=== PATIENT | female | born 1940 | race Caucasian/White ===

== ENCOUNTER 2017-08-08 08:00 | Outpatient (CLI) | payer MEDICARE | END 2017-08-08 08:01 | disposition home or self-care (01) | LOC: BICCT 08:00 | PROVIDERS: ATTEND Internal Medicine | DX: R22.0 Localized swelling, mass and lump, head (principal); J32.9 Chronic sinusitis, unspecified; Z98.890 Other specified postprocedural states | CPT/HCPCS: 70486 ==

== ENCOUNTER 2017-09-25 08:29 | Outpatient (CLI) | payer MEDICARE ==
[2017-09-25] MEDS ORDERED: ISOVUE-370 76%-LOCM 1 ML ONE (13:11)
== END 2017-09-25 08:30 | disposition home or self-care (01) ==
LOC: BICCT 08:29
PROVIDERS: ATTEND Physical Medicine & Rehabilitation
DX: R10.12 Left upper quadrant pain (principal); R93.5 Abnormal findings on diagnostic imaging of other abdominal regions, including retroperitoneum; I70.0 Atherosclerosis of aorta; I77.811 Abdominal aortic ectasia; I70.8 Atherosclerosis of other arteries; K76.89 Other specified diseases of liver
CPT/HCPCS: 74175

== ENCOUNTER 2018-02-10 09:00 | Outpatient (CLI) | payer MEDICARE ==
--- NOTE | 2018-02-10 10:22 | CT ---
NONCONTRAST ENHANCED CT CHEST LOW DOSE CT SCREENING: HISTORY: Patient with a history of smoking. CT images obtained with coronal reconstructed images. Images again demonstrate an area of nodular density in the right major fissure unchanged in size or s hape. A small pretracheal lymph node is again seen. Lung parenchymal opacities and bilateral apical nodularity are stable. No significant interval changes seen. Some minimal coronary artery calcific ation is seen. IMPRESSION: Lung RADS category 2 - benign appearance. Recommend continued annual low-dose CT screening. POS: DYLAN
--- NOTE | 2018-02-10 10:30 | ULT ---
THYROID ULTRASOUND: HISTORY: History of thyroid nodules. TECHNIQUE: Multiplanar, tadeo scale, and color Doppler images were obtained in a thyroid ultrasound. FINDINGS: The thyroid lobes are heterogeneous in appearance. There is a nodule in the right thyroid lobe measu ring 1.1 cm in greatest dimension. These are well-circumscribed and wider than tall without suspicio us calcifications. There is a nodule in the left thyroid lobe measuring 1.4 cm in greatest dimension which is also well circumscribed, wider than tall, and without suspicious calcifications. The thyroid lobes each measure 3.7 cm in length. IMPRESSION: Multiple bilateral thyroid nodules. The largest nodule is seen on the left. This nodule is a TIRADS category 4 lesion. Given its size, a followup at 1 year, 2 views, 3 years, and 5 years is recommend ed to ensure stability. POS: DYLAN
== END 2018-02-10 09:01 | disposition home or self-care (01) ==
LOC: CT 09:00
PROVIDERS: ATTEND Internal Medicine
DX: F17.210 Nicotine dependence, cigarettes, uncomplicated (principal); E04.2 Nontoxic multinodular goiter; Z86.39 Personal history of other endocrine, nutritional and metabolic disease
CPT/HCPCS: 76536; G0297

== ENCOUNTER 2018-02-18 08:41 | Outpatient (CLI) | payer MEDICARE | END 2018-02-18 08:42 | disposition home or self-care (01) | LOC: BICMAMMO 08:41 | PROVIDERS: ATTEND Internal Medicine | DX: Z12.31 Encounter for screening mammogram for malignant neoplasm of breast (principal); Z80.3 Family history of malignant neoplasm of breast | CPT/HCPCS: 77063; 77067 ==

== ENCOUNTER 2019-08-13 08:07 | Outpatient (CLI) | payer MEDICARE ==
--- NOTE | 2019-08-13 08:47 | RAD ---
EXAM: 4 views of the left knee HISTORY: Knee pain COMPARISON: None FINDINGS: No knee effusion is seen. There is no evidence of acute fracture or dislocation. Mild osteo phytes are seen in the lateral femorotibial compartment. No soft tissue swelling is present. IMPRESSION: Mild left knee osteoarthritis without evidence of acute osseous abnormality.
--- NOTE | 2019-08-13 08:57 | RAD ---
RIGHT KNEE 4 VIEWS: Date: 08/13/2019 HISTORY: Knee pain. COMPARISON: None. FINDINGS: Severe medial compartment degenerative change with cortical sclerosis and osteophyte formation. Low g rade genu varus. Mild degenerative change of lateral compartment including osteophyte formation and s clerosis. Small joint effusion. Moderate patellofemoral compartment degenerative change. There is ossification of the medial collateral ligament. IMPRESSION: High grade medial compartment degenerative change. POS: TPC
== END 2019-08-13 08:08 | disposition home or self-care (01) ==
LOC: BICRAD 08:07
PROVIDERS: ATTEND Internal Medicine
DX: M25.562 Pain in left knee (principal); M25.561 Pain in right knee; M17.0 Bilateral primary osteoarthritis of knee
CPT/HCPCS: 36415; 80053; 80061; 82306; 82607; 83036; 83735; 84439; 84443; 85025; 85652; 86140; 86160; 86225; 86235; 86376

== ENCOUNTER 2019-08-20 11:55 | Outpatient (CLI) | payer MEDICARE ==
--- NOTE | 2019-08-20 14:42 | ULT ---
THYROID ULTRASOUND: 08/20/2019 HISTORY: A 78-year-old female. Follow up thyroid nodules. COMPARISON: 02/10/2018 FINDINGS: The thyroid parenchyma, especially on the left, has heterogeneous echogenicity and echotexture, duncan g it difficult to determine whether or not there are discrete nodules in some areas or if the appeara nce just represents heterogeneous thyroid tissue. Furthermore, the previous study and the current study were performed on different ultrasound machines , and there is discrepancy in the mattress and boxsprings supervisor's reported findings between the prior and current studi es. Current dimensions of the thyroid gland are measured as follows: Isthmus: 0.2 cm AP Right lobe: 3.3 x 8.2 x 0.9 cm Left lobe: 3.3 x 0.8 x 1.0 cm Three discrete, well circumscribed, isoechoic nodules are identified in the right lobe, one in the up per pole, one in the mid pole, and one in the lower pole, all abutting each other. The largest of the se is in the lower pole, measuring 0.8 x 1.3 x 0.5 cm. They are solid, isoechoic, wider than tall, espinosa ve smooth margins, and no echogenic foci, for total points of 3 each (TI-RADS category 3 - mildly agustín picious. Recommend FNA if greater than or equal to 2.5 cm. Follow up if greater than 1.5 cm (at 1, 3 and 5 years)) Because the nodules are all less than 1.5 cm, no follow up is recommended. The mattress and boxsprings supervisor has not currently identified any nodules in the left lobe. On the previous ultrasound, the mattress and boxsprings supervisor identified a 1.4 x 0.8 x 0.9 cm hypoechoic nodule occupyi ng the lower and mid poles. On the current ultrasound, such an area is identified on static images (t his study is being read remotely by the radiologist, who has no access to the patient for direct scan tasia) with what is probably the same nodule, measuring approximately 2 x 0.7 cm on the sagittal image (this is not demonstrated on the axial images). The difference in length is probably due to differen lydia in positioning of the transducer. This nodule is solid, hypoechoic, wider than tall, has smooth m argins, and no echogenic foci, for total points of 4 (TI-RADS category 4 - moderately suspicious. Rec ommend FNA if greater than or equal to 1.5 cm. Recommend followup if greater than or equal to 1 cm (a t 1, 2, 3 and 5 years)). The rest of the left mid and upper pole thyroid parenchyma is very heterogeneous, making it difficult to determine whether it is composed of multiple tiny solid nodules or just heterogeneous parenchyma. IMPRESSION: 1. Multinodular goiter. 2. Thyroid parenchyma is heterogeneous, and for reasons given above, comparison with the prior study is very difficult. 3. Apparent TI-RADS category 4 nodule at the lower pole of the left lobe. Uncertain whether or not it has grown (it probably has not). Biopsy is only recommended if it has not already been biopsied befo re. During the time of the biopsy, the radiologist will be able to determine whether or not this is a n actual nodule, because there is some uncertainty. 4. Three nodules in the right lobe are all TI-RADS category 3 lesions, for which followup is not hafsa mmended. POS: TPC
== END 2019-08-20 11:56 | disposition home or self-care (01) ==
LOC: BICULT 11:55
PROVIDERS: ATTEND Internal Medicine
DX: E04.2 Nontoxic multinodular goiter (principal); E07.89 Other specified disorders of thyroid
CPT/HCPCS: 76536

== ENCOUNTER 2019-08-27 13:13 | Outpatient (CLI) | payer MEDICARE ==
--- NOTE | 2019-08-27 14:14 | RAD ---
LUMBAR SPINE FOUR VIEWS: HISTORY: Low back pain. FINDINGS: The lumbar vertebrae maintain normal height and alignment in the lateral projection. There is loss of disk space, most prominent at L3-L4 and at L4-L5. Mild to moderate degenerative spurring. Moderate f acet hypertrophy. No spondylolisthesis. IMPRESSION: Mild to moderate degenerative changes of the lumbar spine, as described. POS: TPC
== END 2019-08-27 13:14 | disposition home or self-care (01) ==
LOC: BICRAD 13:13
PROVIDERS: ATTEND Internal Medicine Rheumatology
DX: M54.5 Low back pain (principal); M47.816 Spondylosis without myelopathy or radiculopathy, lumbar region
CPT/HCPCS: 72110

== ENCOUNTER 2019-09-24 09:41 | Outpatient (CLI) | payer MEDICARE ==
--- NOTE | 2019-09-24 10:41 | BD ---
DEXA BONE MINERAL DENSITY STUDY: HISTORY: Postmenopausal female. COMPARISON: Bone densitometry from 2017. FINDINGS: Lumbar Spine: BMD (g/cm2) L1 0.791 T-Score: -1.8 0.5 L2 0.936 T-Score: -0.8 1.7 L3 1.050 T-Score: -0.3 2.4 L4 0.976 T-Score: -0.8 2.0 L1-L4 0.937 T-Score: -1.0 1.6 Change from the comparison exam is +6.1%. Left: Femoral Neck: 0.620 T-Score: -2.1 0.1 Total Femur: 0.626 T-Score: -2.5 -0.6 Change from the comparison examination is -2.7%. WHO CLASSIFICATION: Osteoporosis. Impression: Osteoporosis with elevated fracture risk. POS: OFF
--- NOTE | 2019-09-24 12:14 | MMO ---
Bilateral MAMMO Bilat Screen [facility]. CLINICAL HISTORY: Patient is 78 years old and is seen for screening. The patient has the following family history of breast cancer: maternal aunt, malignant (generic). The patient has no personal history of cancer. The patient has a history of right Excisional Biopsy more than 10 years ago - benign. VIEWS: The views performed were: bilateral craniocaudal with tomosynthesis and bilateral mediolateral oblique with tomosynthesis. FILMS COMPARED: The present examination has been compared to prior imaging studies performed at This study has been interpreted with the assistance of computer-aided detection. MAMMOGRAM FINDINGS: There are scattered fibroglandular densities. There is a post-surgical scar seen in the right breast. There are no suspicious masses, suspicious calcifications, or new areas of architectural distortion. IMPRESSION: THERE IS NO MAMMOGRAPHIC EVIDENCE OF MALIGNANCY. A ROUTINE FOLLOW-UP MAMMOGRAM IN 1 YEAR IS RECOMMENDED. THE RESULTS OF THIS EXAM WERE SENT TO THE PATIENT. ACR BI-RADS Category 2 - Benign finding MAMMOGRAPHY NOTE: 1. A negative mammogram report should not delay a biopsy if a dominant of clinically suspicious mass is present. 2. Approximately 10% to 15% of breast cancers are not detected by mammography. 3. Adenosis and dense breasts may obscure an underlying neoplasm. Reported by: JAZMYN CESAR MD Electonically Signed: [id number]
== END 2019-09-24 09:42 | disposition home or self-care (01) ==
LOC: BICMAMMO 09:41
PROVIDERS: ATTEND Internal Medicine
DX: Z12.31 Encounter for screening mammogram for malignant neoplasm of breast (principal); Z13.820 Encounter for screening for osteoporosis; M81.0 Age-related osteoporosis without current pathological fracture; Z78.0 Asymptomatic menopausal state; Z80.3 Family history of malignant neoplasm of breast; Z91.89 Other specified personal risk factors, not elsewhere classified
CPT/HCPCS: 77063; 77067; 77080

== ENCOUNTER 2019-09-30 09:49 | Outpatient (CLI) | payer MEDICARE ==
--- NOTE | 2019-09-30 11:09 | ULT ---
US Abdominal Aorta Aneurysm HISTORY: Screening for abdominal aortic aneurysm without rupture COMPARISON: CTA of 09/25/2017 FINDINGS: The abdominal aortic measurements are as follows: Proximal: 1.4 x 1.8 x 1.5 cm Mid: 1.4 x 1.8 x 1.7 cm Distal: 1.4 x 2 x 1.8 cm The right common iliac artery measures 0.80 cm and the left common iliac artery measures 0.63 IMPRESSION: No evidence of abdominal aortic aneurysm
== END 2019-09-30 09:50 | disposition home or self-care (01) ==
LOC: BICULT 09:49
PROVIDERS: ATTEND Internal Medicine
DX: I71.4 Abdominal aortic aneurysm, without rupture (principal)
CPT/HCPCS: 76706

== ENCOUNTER 2019-10-08 05:47 | Day surgery (SDC) | payer MEDICARE ==
[2019-10-07 09:17] VITALS: BMI 25.0
[2019-10-08] MEDS ORDERED: EPINEPHrine 0.3 MG in Ophthalmic Irrigation Solution 500 ML IVP SCH (06:00)
[2019-10-08] MEDS ORDERED: Phenylephrine 2.5% Ophth Soln 5 ML BOT ONE (06:03)
[2019-10-08] MEDS ORDERED: Cyclopentolate 1% Opth Drop 2 ML BOT ONE (06:03)
[2019-10-08] MEDS ORDERED: Famotidine/PF 20 mg/2ml Vial ONE (06:45)
[2019-10-08] MEDS ORDERED: Midazolam HCl 2 mg/2 ml Vial ONE (06:45)
[2019-10-08] MEDS ORDERED: Fentanyl 100 MCG/2 ML VIAL ONE (06:45)
[2019-10-08] MEDS ORDERED: Ondansetron PF 4 MG/2 ML Vial ONE ×2 (06:56→10:15)
[2019-10-08] MEDS ORDERED: PROPOFOL 20 ML ONE (06:57)
[2019-10-08] MEDS ORDERED: Promethazine HCl 25 MG/ML VIAL ONE (07:47)
[2019-10-08] MEDS ORDERED: PROPOFOL 200 MG/20 ML VIAL ONE (10:15)
[2019-10-08] MEDS ORDERED: Triamcinolone 40 MG/ML VIAL ONE (10:15)
[2019-10-08] MEDS ORDERED: Bupivacaine PF 0.75% SDV 10 ML ONE (10:15)
[2019-10-08] MEDS ORDERED: Maxitrol 0.1% Opth Oint 3.5 GM TUBE ONE (10:15)
[2019-10-08] MEDS ORDERED: Lidocaine 4% PF 5 ML AMP ONE (10:15)
--- NOTE | 2019-10-08 13:14 | OP ---
DATE OF PROCEDURE: 10/08/2019 PREOPERATIVE DIAGNOSES: Retinal tear and vitreous membranes, right eye. POSTOPERATIVE DIAGNOSIS: Retinal tear and vitreous membranes, right eye. PROCEDURES PERFORMED: Pars plana vitrectomy, membrane peel, and focal laser photocoagulation, right eye. ANESTHESIA: Local with monitored anesthesia care. PROCEDURE IN DETAIL: The patient was identified in the preoperative holding area where appropriate informed consent for the planned surgical procedure on the right eye had been obtained. The patient was transported to the operative suite where appropriate cardiopulmonary monitoring was established. Local anesthesia was obtained using retrobulbar modified Van Lint lid block using 50:50 mixture of 4% lidocaine and 0.75% bupivacaine. The patient was prepped and draped in the usual sterile manner for ophthalmic surgery in the right eye. Lid speculum was placed in the right eye. A 25-gauge trocar was placed in the conjunctiva and sclera superotemporally, inferotemporally, and supranasally. Infusion line was placed inferotemporally. Light pipe and vitreous cutter were inserted into the eye. Core vitrectomy was performed. Vitreous membranes were peeled and removed. Supratemporal horseshoe tear was identified. Prophylactic barricade laser was placed around the horseshoe tear. On peripherally inspected wide field viewing system, no holes, breaks, or tears were identified. Trocars removed. Eye was noted to retain pressure well. Retrobulbar Kenalog was placed. Antibiotic ointment placed. Eye was patched and shielded. The patient was taken to postoperative recovery unit in good condition, having suffered no immediate perioperative complications. The patient was instructed to keep patch and shield on, avoid lifting or bending, followup appointment with Dr. Brown. Job ID: [id number]
== END 2019-10-08 09:28 | disposition home or self-care (01) ==
LOC: SDC 05:47
PROVIDERS: ATTEND Ophthalmology Retina Specialist
PROC: 08T43ZZ Resection of Right Vitreous, Percutaneous Approach (ICD-10-PCS; principal; 2019-10-08)
PROC: 08NE3ZZ Release Right Retina, Percutaneous Approach (ICD-10-PCS; 2019-10-08)
DX: H43.311 Vitreous membranes and strands, right eye (principal); Z88.0 Allergy status to penicillin; Z88.5 Allergy status to narcotic agent
CPT/HCPCS: J0171; J2001; J2250; J2405; J2550; J2704; J3010; J3301; J3490; S0028

== ENCOUNTER 2019-12-30 09:40 | Outpatient (CLI) | payer MEDICARE ==
[2019-12-30] MEDS ORDERED: Magnevist 469MG/ML 20 ML VIAL ONE (11:49)
--- NOTE | 2019-12-30 11:55 | MRI ---
MRI BRAIN WITH AND WITHOUT CONTRAST: DATE: 12/30/2019 HISTORY: 79-year-old female with seizure disorder. History of previous craniotomies. COMPARISON: 05/29/2017 TECHNIQUE: Multiplanar, multisequence MRI of the brain performed pre- and post-IV injection of gadolinium based contrast agent. FINDINGS: Ventricles are normal in size and configuration. No obstructive hydrocephalus, mass effect, midline s hift, abnormal intra-axial enhancement, or extra-axial fluid collection. No evidence of gross asymmetry between left and right hippocampi. No signal abnormality in the hippocampi. Small focus of encephalomalacia and gliosis at the left lateral frontal lobe parenchyma deep to the old left craniotomy site. Mild chronic ischemic white matter changes isolated to the biparietal centrum semiov darlyn has slightly progressed since prior MRI. No new areas of intra-axial signal abnormality. Small left mastoid effusion. Opacification of one of the left anterior ethmoid air cells. IMPRESSION: 1. Small region of encephalomalacia and gliosis just deep to left old craniotomy site. 2. No other significant brain abnormality..
== END 2019-12-30 09:41 | disposition home or self-care (01) ==
LOC: BICMRI 09:40
PROVIDERS: ATTEND Internal Medicine
DX: G40.909 Epilepsy, unspecified, not intractable, without status epilepticus (principal); G93.89 Other specified disorders of brain
CPT/HCPCS: 70553; A9579

== ENCOUNTER 2019-12-31 06:32 | Outpatient (CLI) | payer MEDICARE, OTHER ==
[2019-12-31 10:35] VITALS: BMI 25.0
[2019-12-31 12:24] LABS: Bacteria/HPF 2+ HPF (None Seen); Bilirubin Negative (Negative); Blood, Urine Trace (Negative); Clarity Clear (Clear); Glucose, Urine (Dipstick) Normal (Negative); Leukocyte Negative Leu/uL (Negative); Nitrite Negative (Negative); Protein, Urine (Dipstick) Negative (Neg-Trace); RBC/HPF 0-3 HPF (0-3); Squamous Epithelial 0-3 HPF (0-3); Urobilinogen Normal mg/dL (Less than 2); WBC/HPF 0-3 HPF (0-3)
[2019-12-31 12:28] LABS: #Basophils 0.1 thou/uL (0.0-0.2); #Eosinphils 0.2 thou/uL (0.0-0.7); #Lymphocytes 2.7 thou/uL (1.20-3.40); #Monocytes 0.8 thou/uL (0.11-0.59); #Neutrophils 5.1 thou/uL (1.40-6.50); %Basophils 1.4 % (0.0-1.0); %Eosinophils 2.6 % (0.0-10.0); %Lymphocytes 29.8 % (21.0-51.0); %Monocytes 9.2 % (0.0-10.0); %Neutrophils 56.9 % (42.0-75.0); Hemoglobin 15.1 g/dL (12.0-16.0); Mean Corpuscular HGB CONC 34.6 g/dL (32.0-36.0); Mean Corpuscular Hemoglobin 33.3 pg (27.0-31.0); Mean Corpuscular Volume 96.1 fL (78.0-98.0); Mean Platelet Volume 10.6 fL (7.4-10.4); Platelet Count 185 thou/uL (130-400); RBC Distribution Width 12.3 % (11.5-14.5); Red Blood Cell (RBC) Count 4.53 mill/uL (4.20-5.40)
[2019-12-31 12:32] LABS: INR-International Normal Ratio 0.9; PTT 33.7 sec (22.9-36.1); Prothrombin Time 11.7 sec (12.0-14.7)
[2019-12-31 12:44] LABS: Anion Gap 13 mmol/L (10-20); BUN (Urea Nitrogen) 13 mg/dL (9.8-20.1); Calc. Creatinine Clearance 57 mL/min (70-130); Calcium 9.3 mg/dL (7.8-10.44); Carbon Dioxide 23 mmol/L (23-31); Chloride 99 mmol/L (98-107); Estimated GFR-MDRD 58; Glucose 82 mg/dL (83-110); Potassium 4.3 mmol/L (3.5-5.1); Sodium 131 mmol/L (136-145)
[2019-12-31 18:20] LABS: SARS-CoV-2 MS2 Positive; SARS-CoV-2 N Gene Negative; SARS-CoV-2 S Gene Negative; SARS-CoV-2 orf1ab Negative
== END 2019-12-31 06:33 | disposition home or self-care (01) ==
LOC: LABBT 06:32
PROVIDERS: ATTEND Orthopaedic Surgery
DX: Z01.812 Encounter for preprocedural laboratory examination (principal); Z11.59 Encounter for screening for other viral diseases; M17.31 Unilateral post-traumatic osteoarthritis, right knee
CPT/HCPCS: 80048; 81001; 85025; 85610; 85730; 87081; 87086; U0003; 87635

== ENCOUNTER 2020-01-04 09:01 | Day surgery (SDC) | payer MEDICARE ==
--- NOTE | 2019-12-31 09:15 | HP ---
ANTICIPATED DATE OF ADMISSION: 01/04/2020. HISTORY OF PRESENT ILLNESS: The patient is a 79 year old female with a long history of progressive problems with her right knee without specific injury. She has had prior knee surgeries and a previous open meniscectomy in 1973 followed by 3 arthroscopic surgeries most recently in 1982. She has had progressive problems with weightbearing that she has persisted despite rest, restriction activities, lifestyle adjustments, medications, and previous injections. Pain is now interfering with day-to-day activities including walking, getting dressed, and sleeping. PAST MEDICAL HISTORY: The patient has had history of seizures following 3 brain surgeries for meningiomas, this is currently stable at this point in time. She has history of mild heart failure followed by Dr. Roberts. Echocardiogram shows a normal ejection fraction with mild mitral valve reflux. She has a history of thyroid replacement. CURRENT MEDICATIONS: Include; 1. Multivitamins. 2. Colace. 3. Levothyroxine. 4. Fish oil. 5. Meloxicam. 6. Levetiracetam. ALLERGIES: SHE IS ALLERGIC TO PENICILLIN AND CEFEPIME, BOTH OF WHICH APPARENTLY CAUSED ANAPHYLAXIS, CUBICIN, CODEINE causes upset stomach,STATINS CAUSE MYALGIA. LIVALO AND ZETIA CAUSE HEADACHES. CYMBALTA CAUSES HALLUCINATION. FOSAMAX CAUSES UPSET STOMACH. IBANDRONATE CAUSES UPSET STOMACH. FAMILY HISTORY: Otherwise unremarkable. SOCIAL HISTORY: Otherwise unremarkable. REVIEW OF SYSTEMS: Otherwise unremarkable. PHYSICAL EXAMINATION: GENERAL: Reveals an elderly healthy female. HEENT: Unremarkable. NECK: Supple. CHEST: Clear. HEART: Regular rate and rhythm. ABDOMEN: Soft and nontender. PELVIC: Deferred. RECTAL: Deferred. BREASTS: Deferred. EXTREMITIES: Pertinent findings related to the right knee. There is mild varus deformity. There is tenderness and crepitus over the medial joint line. There is healed medial incision and healed arthroscopy puncture sites. Range of motion is 10 to 110 degrees with crepitus. There is no instability. Neurovascular exam is intact. There is a right antalgic gait. There is no pain to range of motion of the right hip. DIAGNOSTIC STUDIES: X-rays of the right knee reveal [id number] collapse medially. IMPRESSION: 1. Posttraumatic degenerative arthritis, right knee. 2. History of atherosclerotic cardiovascular disease. 3. History of thyroid replacement. PLAN: Right total knee replacement. The nature of the surgery, length of recovery, and potential complications such as infection, loss of motion, incomplete relief , delayed wound healing, neurovascular injury, thromboembolic phenomena, possible transfusion, and need for revision have been discussed in detail. Job ID: [id number] [facility]
[2020-01-04] MEDS ORDERED: Levofloxacin 500 mg/D5W 100 ml Premix Bag ONE ×2 (09:13→11:25)
[2020-01-04] MEDS ORDERED: Vancomycin 1 GM/200 ML BAG ONE (09:13)
[2020-01-04] MEDS ORDERED: Midazolam HCl 2 mg/2 ml Vial ONE (09:34)
[2020-01-04] MEDS ORDERED: EPINEPHrine 1 MG/ML AMP ONE (09:34)
[2020-01-04] MEDS ORDERED: Fentanyl 100 MCG/2 ML VIAL ONE ×5 (09:34→13:45)
[2020-01-04] MEDS ORDERED: Sodium Chloride 0.9% 100 ML ONE (09:56)
[2020-01-04] MEDS ORDERED: Tranexamic Acid 1,000 MG/10 ML VIAL ONE ×2 (09:56→13:21)
[2020-01-04] MEDS ORDERED: traMADol HCl 50 MG TAB PO PRN ×2 (10:58)
[2020-01-04] MEDS ORDERED: Ondansetron PF 4 MG/2 ML Vial IVP PRN ×2 (10:58→15:15)
[2020-01-04] MEDS ORDERED: Ropivacaine HCl/PF 250 ML in Premix Bag 1 BAG NERVE BLCK SCH (10:58)
[2020-01-04] MEDS ORDERED: HYDROcodone/Acetaminophen 10/325 mg Tablet PO PRN ×3 (10:58→15:15)
[2020-01-04] MEDS ORDERED: Promethazine HCl 25 MG/ML VIAL IM PRN ×3 (10:58→15:15)
[2020-01-04] MEDS ORDERED: Zolpidem Tartrate 5 MG TAB PO PRN ×2 (10:58→15:15)
[2020-01-04] MEDS ORDERED: Fentanyl 100 MCG/2 ML VIAL IV PRN (10:59)
[2020-01-04] MEDS ORDERED: Lidocaine 1% w/Epinephrine 1:100K 20 ML VIAL ONE (11:04)
[2020-01-04] MEDS ORDERED: Bupivacaine 0.25% HCL 30 ML VIAL ONE (11:04)
[2020-01-04] MEDS ORDERED: Promethazine HCl 25 MG/ML VIAL SLOW IVP PRN (13:14)
[2020-01-04] MEDS ORDERED: Ondansetron HCl/PF 4 MG/2 ML Vial IVP PRN (13:14)
[2020-01-04] MEDS ORDERED: Ondansetron PF 4 MG/2 ML Vial ONE (13:27)
[2020-01-04] MEDS ORDERED: Ropivacaine 0.2% HCl/PF (40 MG/20 ML VIAL) ONE (13:27)
[2020-01-04] MEDS ORDERED: Dexamethasone 20 MG/5 ML VIAL ONE (13:27)
[2020-01-04] MEDS ORDERED: EPHEDRINE 25 MG/5 ML SYRINGE ONE (13:27)
[2020-01-04] MEDS ORDERED: Bupivacaine HCl 0.5%/Epinephrine 1:200,000/PF 30 ml Vial ONE (13:27)
[2020-01-04] MEDS ORDERED: PHENYLEPHRINE-NS 100 MCG/ML 10 ML SYRINGE ONE (13:27)
[2020-01-04] MEDS ORDERED: PROPOFOL 200 MG/20 ML VIAL ONE (13:27)
[2020-01-04] MEDS ORDERED: Lidocaine 1% PF 5 ML VIAL ONE (13:27)
[2020-01-04] MEDS ORDERED: Tranexamic Acid 1,000 MG in Sodium Chloride 0.9% 100 ML IVPB SCH (13:30)
--- NOTE | 2020-01-04 13:55 | RAD ---
TWO VIEWS RIGHT KNEE: Comparison: None History: Status post knee replacement. FINDINGS: Two views of the right knee shows the patient to be status post right knee arthroplasty without perih ardware lucency or fracture. Air in the soft tissues is from recent surgery. IMPRESSION: Status post right knee arthroplasty without evidence of complication. POS: EAA
[2020-01-04] MEDS: Ketorolac Tromethamine 30 MG/ML VIAL IVP SCH ×3 (15:12→22:59)
[2020-01-04] MEDS ORDERED: Acetaminophen 325 MG TAB PO PRN (15:15)
[2020-01-04] MEDS ORDERED: diphenhydrAMINE 25 MG CAP PO PRN (15:15)
[2020-01-04] MEDS ORDERED: Morphine 2 MG/ML SYRINGE SLOW IVP PRN (15:15)
[2020-01-04] MEDS ORDERED: Ketorolac Tromethamine 30 MG/ML VIAL IVP PRN (15:15)
[2020-01-04 15:18] VITALS: BMI 25.0
--- NOTE | 2020-01-04 15:21 | OP ---
DATE OF PROCEDURE: 01/04/2020 SENIOR ESCROW OFFICER: Adryan Craft PA-C. ANESTHESIA: General plus adductor canal and sciatic nerve blocks. PREOPERATIVE DIAGNOSIS: Posttraumatic degenerative arthritis, right knee. POSTOPERATIVE DIAGNOSIS: Posttraumatic degenerative arthritis, right knee. PROCEDURE PERFORMED: Right total knee replacement with computer-assisted navigation with cemented [place] Triathlon components (#5 femoral component, #4 primary tibial base plate, 9 mm CS plastic insert, and all-plastic A32 patellar component). DESCRIPTION OF PROCEDURE: After satisfactory anesthesia was induced in supine position, sequential compression device was placed on the non-operated leg throughout the procedure. The right leg was then prepped and draped in routine sterile fashion. The right leg was elevated and exsanguinated with an Esmarch bandage and the tourniquet inflated to 250 mmHg. I elected to use a longitudinal midline incision, incorporating her previous medial incision, which we felt was too far medial and we created a large medial skin flap, which I was concerned about blood supply. Since the incision was over 40 years old, I did not think there is going to be a major problem from a skin bridge between the midline and the medial incision from the blood flow standpoint. A midline incision was made, carried down through the subcutaneous tissues. Bleeding points were controlled with Bovie cautery. Full-thickness skin flaps were developed and care was taken to avoid excessive pressure on the skin edges. Medial parapatellar arthrotomy was performed. Patella was dislocated laterally and portions of the fat pad were excised for exposure. There was marked degenerative arthritis of the knee, especially medially with large areas of exposed bone. Meniscal remnants and osteophytes were removed. Using the appropriate guides and the Shippter pinless navigation system, the distal femoral and proximal tibial articular surfaces were excised with an oscillating saw to accept the trial components. It was felt that #5 femoral component, #4 tibial baseplate with 9 mm CS plastic insert gave appropriate size, fit, stability, and correction of the preoperative deformity. The patellar articular surface was excised to accept an all-plastic A32 patellar component. There was good range of motion and good patellar tracking. The trial components were removed. The knee was copiously irrigated with pulsatile lavage and the bony surfaces were thoroughly cleaned and dried. The permanent components were then cemented in a single stage using one pack of cement premixed with 1 g of tobramycin powder. Excess cement was removed. There was again good fit and stability of the components. The knee was then copiously irrigated. The medial retinaculum and quadriceps mechanism were closed with interrupted #2 Vicryl and a running #2 Quill. The skin was infiltrated with a mixture of 30 mL of 0.25% plain Marcaine and 20 mL of 1% lidocaine with epinephrine. Subcutaneous tissue was closed with a running 0 Quill suture and the skin closed with a running subcuticular 3-0 Monoderm and Surgicel skin adhesive. Sterile bulky compressive dressing was applied. The tourniquet deflated after 76 minutes. The foot promptly pinked up. A sequential compression device was placed on the operative leg and she was awakened and taken to the recovery room in stable condition. There were no apparent intraoperative complications. ESTIMATED BLOOD LOSS: Less than 100 mL. Job ID: [id number]
[2020-01-04] MEDS: Sodium Chloride 0.9% 1,000 ML IV SCH (18:43)
[2020-01-04] MEDS: Morphine 4 MG/ML VIAL SLOW IVP PRN ×2 (19:41→22:46)
[2020-01-04] MEDS ORDERED: Vancomycin HCl 1 GM in Sodium Chloride 0.9% 250 ML 300 ML IVPB SCH (21:00)
[2020-01-04] MEDS ORDERED: Vancomycin 1 GM in Premix Bag 1 BAG IVPB SCH (21:00)
[2020-01-04] MEDS: Aspirin 81 mg Enteric Coated Tablet PO SCH (21:09)
[2020-01-04] MEDS: levETIRAcetam 500 MG TAB PO SCH (21:09)
[2020-01-04] MEDS: Senokot S 8.6-50 MG TAB PO SCH (21:09)
[2020-01-05] MEDS: Sodium Chloride 0.9% 1,000 ML IV SCH ×3 (02:21→15:00)
[2020-01-05] MEDS: Levothyroxine Sodium 88 MCG TAB PO SCH (05:35)
[2020-01-05] MEDS: Ketorolac Tromethamine 30 MG/ML VIAL IVP SCH ×2 (05:35→13:07)
[2020-01-05 05:52] LABS: Hemoglobin 13.3 g/dL (12.0-16.0); Mean Corpuscular HGB CONC 34.1 g/dL (32.0-36.0); Mean Corpuscular Hemoglobin 32.7 pg (27.0-31.0); Mean Corpuscular Volume 95.8 fL (78.0-98.0); Mean Platelet Volume 9.6 fL (7.4-10.4); Platelet Count 157 thou/uL (130-400); RBC Distribution Width 12.2 % (11.5-14.5); Red Blood Cell (RBC) Count 4.07 mill/uL (4.20-5.40); White Blood Cell (WBC) Count 14.8 thou/uL (4.8-10.8)
[2020-01-05] MEDS: Cholecalciferol 1,000 UNITS (25 MCG) TAB PO SCH (08:37)
[2020-01-05] MEDS: Senokot S 8.6-50 MG TAB PO SCH ×2 (08:37→20:39)
[2020-01-05] MEDS: Aspirin 81 mg Enteric Coated Tablet PO SCH ×2 (08:37→20:35)
[2020-01-05] MEDS: levETIRAcetam 500 MG TAB PO SCH ×2 (08:37→20:35)
[2020-01-05] MEDS: Multivitamin W/ Minerals 1 TAB PO SCH (08:38)
[2020-01-05] MEDS: Cyanocobalamin (Vitamin B-12) 1,000 MCG TAB PO SCH (08:38)
[2020-01-05] MEDS: HYDROcodone/Acetaminophen 10/325 mg Tablet PO PRN ×3 (08:39→18:21)
[2020-01-05] MEDS: Fish Oil 1,000 MG CAP PO SCH (08:40)
[2020-01-05] MEDS: Cyclobenzaprine 10 MG TAB PO PRN (15:00)
[2020-01-05] MEDS: Ibuprofen 600 MG TAB PO SCH ×2 (15:30→20:39)
[2020-01-05] MEDS ORDERED: Ondansetron ODT 4 MG TAB SL PRN ×2 (16:15→19:55)
[2020-01-06] MEDS: Cyclobenzaprine 10 MG TAB PO PRN ×2 (02:12→08:58)
[2020-01-06] MEDS: HYDROcodone/Acetaminophen 10/325 mg Tablet PO PRN ×3 (02:12→20:10)
[2020-01-06] MEDS ORDERED: Calcium Carbonate 500 MG ChewTAB PO PRN (02:21)
[2020-01-06] MEDS: Ibuprofen 600 MG TAB PO SCH ×4 (03:14→21:56)
[2020-01-06] MEDS: Levothyroxine Sodium 88 MCG TAB PO SCH (06:22)
[2020-01-06] MEDS: Fish Oil 1,000 MG CAP PO SCH (08:59)
[2020-01-06] MEDS: Cyanocobalamin (Vitamin B-12) 1,000 MCG TAB PO SCH (08:59)
[2020-01-06] MEDS: levETIRAcetam 500 MG TAB PO SCH ×2 (08:59→20:15)
[2020-01-06] MEDS: Multivitamin W/ Minerals 1 TAB PO SCH (08:59)
[2020-01-06] MEDS: Cholecalciferol 1,000 UNITS (25 MCG) TAB PO SCH (08:59)
[2020-01-06] MEDS: Aspirin 81 mg Enteric Coated Tablet PO SCH ×2 (08:59→20:15)
[2020-01-06] MEDS: Senokot S 8.6-50 MG TAB PO SCH ×2 (09:02→20:16)
[2020-01-07] MEDS: Cyclobenzaprine 10 MG TAB PO PRN ×3 (00:54→18:16)
[2020-01-07] MEDS: HYDROcodone/Acetaminophen 10/325 mg Tablet PO PRN ×4 (00:54→16:14)
[2020-01-07] MEDS: Ibuprofen 600 MG TAB PO SCH ×4 (05:00→21:26)
[2020-01-07] MEDS: Levothyroxine Sodium 88 MCG TAB PO SCH (05:38)
[2020-01-07] MEDS: Multivitamin W/ Minerals 1 TAB PO SCH (09:23)
[2020-01-07] MEDS: traMADol HCl 50 MG TAB PO PRN ×2 (09:23→18:16)
[2020-01-07] MEDS: Cyanocobalamin (Vitamin B-12) 1,000 MCG TAB PO SCH (09:23)
[2020-01-07] MEDS: Fish Oil 1,000 MG CAP PO SCH (09:23)
[2020-01-07] MEDS: Cholecalciferol 1,000 UNITS (25 MCG) TAB PO SCH (09:23)
[2020-01-07] MEDS: levETIRAcetam 500 MG TAB PO SCH ×2 (09:24→19:38)
[2020-01-07] MEDS: Senokot S 8.6-50 MG TAB PO SCH ×2 (09:24→19:37)
[2020-01-07] MEDS: Aspirin 81 mg Enteric Coated Tablet PO SCH ×2 (09:24→19:38)
[2020-01-08] MEDS: Cyclobenzaprine 10 MG TAB PO PRN ×2 (03:43→13:03)
[2020-01-08] MEDS: Ibuprofen 600 MG TAB PO SCH ×5 (03:43→22:40)
[2020-01-08] MEDS: Levothyroxine Sodium 88 MCG TAB PO SCH (03:43)
[2020-01-08] MEDS: HYDROcodone/Acetaminophen 10/325 mg Tablet PO PRN ×3 (03:44→18:38)
[2020-01-08] MEDS: Senokot S 8.6-50 MG TAB PO SCH ×2 (08:19→19:41)
[2020-01-08] MEDS: Aspirin 81 mg Enteric Coated Tablet PO SCH ×2 (08:19→19:41)
[2020-01-08] MEDS: Multivitamin W/ Minerals 1 TAB PO SCH (08:19)
[2020-01-08] MEDS: Cholecalciferol 1,000 UNITS (25 MCG) TAB PO SCH (08:19)
[2020-01-08] MEDS: levETIRAcetam 500 MG TAB PO SCH ×2 (08:20→19:41)
[2020-01-08] MEDS: Cyanocobalamin (Vitamin B-12) 1,000 MCG TAB PO SCH (08:20)
[2020-01-08] MEDS: Fish Oil 1,000 MG CAP PO SCH (08:20)
[2020-01-08] MEDS: traMADol HCl 50 MG TAB PO PRN ×3 (08:25→22:40)
[2020-01-09] MEDS: Ibuprofen 600 MG TAB PO SCH ×2 (05:03→09:04)
[2020-01-09] MEDS: traMADol HCl 50 MG TAB PO PRN (06:02)
[2020-01-09] MEDS: Levothyroxine Sodium 88 MCG TAB PO SCH (06:02)
[2020-01-09] MEDS: Aspirin 81 mg Enteric Coated Tablet PO SCH (09:03)
[2020-01-09] MEDS: Fish Oil 1,000 MG CAP PO SCH (09:03)
[2020-01-09] MEDS: Cyanocobalamin (Vitamin B-12) 1,000 MCG TAB PO SCH (09:03)
[2020-01-09] MEDS: Cholecalciferol 1,000 UNITS (25 MCG) TAB PO SCH (09:03)
[2020-01-09] MEDS: Multivitamin W/ Minerals 1 TAB PO SCH (09:04)
[2020-01-09] MEDS: HYDROcodone/Acetaminophen 10/325 mg Tablet PO PRN ×2 (09:04→12:44)
[2020-01-09] MEDS: Senokot S 8.6-50 MG TAB PO SCH (09:04)
[2020-01-09] MEDS: levETIRAcetam 500 MG TAB PO SCH (09:04)
[2020-01-09 10:58] VITALS: BP 119/66; TEMP 97.8
--- NOTE | 2020-01-10 | DIS ---
DATE OF ADMISSION: 01/04/2020 DATE OF DISCHARGE: 01/09/2020 HOSPITAL COURSE: The patient is a 79-year-old female with a long history of progressive posttraumatic degenerative arthritis of the right knee, five previous injury and open surgery over 40 years ago. She has had progressive problems despite restriction of activities, anti-inflammatory medications, and injections. She was taken to the operating room on the day of admission, where she underwent right total knee replacement under general anesthesia with supplemental sciatic and adductor canal blocks. Postoperative course was essentially benign. She was going to program for ambulation with a walker and active range of motion exercises. She required a little longer stay in the hospital because she had no immediate family to take care of her. At this time, arrangements have been made for home health as well as the family has been able to arrange someone to watch her while her daughter works. She is discharged in satisfactory condition. The wound is clean. She is afebrile. Her H and H are stable. She is given written wound care instructions and has been sent a prescription for [place] 10 for pain 60 tablets; Zofran 4 mg ODT p.r.n. for nausea, 30 tablets with two refills; and Flexeril 5 mg, 30 tablets with one refill, one t.i.d. p.r.n. muscle spasm. She will be rechecked in my office in 2 to 3 weeks or sooner with any problems prior to that time. DISCHARGE DIAGNOSES: Degenerative arthritis and post-traumatic degenerative arthritis, right knee status post right total knee replacement. Job ID: [id number]
== END 2020-01-09 13:10 | disposition home or self-care (01) ==
LOC: SDC 09:01 → EDSTATUS 10:15 → UNDOADMOB 14:51 → SJJU 14:51 → UNDODISOB 01-09 13:10 → SDC 01-09 13:10
PROVIDERS: ATTEND Orthopaedic Surgery
PROC: 0SRC0J9 Replacement of Right Knee Joint with Synthetic Substitute, Cemented, Open Approach (ICD-10-PCS; principal; 2020-01-04)
PROC: 8E0YXBZ Computer Assisted Procedure of Lower Extremity (ICD-10-PCS; 2020-01-04)
PROC: 3E0T3BZ Introduction of Anesthetic Agent into Peripheral Nerves and Plexi, Percutaneous Approach (ICD-10-PCS; 2020-01-04)
PROC: 3E0T3BZ Introduction of Anesthetic Agent into Peripheral Nerves and Plexi, Percutaneous Approach (ICD-10-PCS; 2020-01-04)
DX: M17.31 Unilateral post-traumatic osteoarthritis, right knee (principal); G89.18 Other acute postprocedural pain; I50.9 Heart failure, unspecified; I25.10 Atherosclerotic heart disease of native coronary artery without angina pectoris; E03.9 Hypothyroidism, unspecified; E78.5 Hyperlipidemia, unspecified; M10.9 Gout, unspecified; F17.210 Nicotine dependence, cigarettes, uncomplicated; G62.9 Polyneuropathy, unspecified; R73.03 Prediabetes; M85.80 Other specified disorders of bone density and structure, unspecified site; M81.0 Age-related osteoporosis without current pathological fracture; E55.9 Vitamin D deficiency, unspecified; Z79.899 Other long term (current) drug therapy; Z88.0 Allergy status to penicillin; Z88.1 Allergy status to other antibiotic agents; Z88.5 Allergy status to narcotic agent; Z88.8 Allergy status to other drugs, medicaments and biological substances; Z98.1 Arthrodesis status; Z98.890 Other specified postprocedural states
CPT/HCPCS: 20985; 27447; 64445; 64448; 73560; 82962; 85027; 97110 ×4; 97116 ×5; 97139 ×6; 97530 ×4; 97535 ×3; C1713; C1776; 36415; 36416; J0171; J0670; J1100; J1885; J1956; J2250; J2270; J2405; J2704; J2795; J3010; J3370; J3490; Q0162; Q0163; S0020

== ENCOUNTER 2020-08-24 08:55 | Outpatient (CLI) | payer MEDICARE ==
--- NOTE | 2020-08-24 09:55 | MMO ---
Bilateral MAMMO Bilat Diag [facility]. CLINICAL HISTORY: Patient is 79 years old and is seen for diagnostic exam and lump or thickening in both breasts. The patient has the following family history of breast cancer: maternal aunt, malignant (generic). The patient has no personal history of cancer. The patient has a history of right Excisional Biopsy more than 10 years ago - benign. VIEWS: The views performed were: bilateral craniocaudal with tomosynthesis; bilateral mediolateral oblique with tomosynthesis; and bilateral mediolateral with tomosynthesis. FILMS COMPARED: The present examination has been compared to prior imaging studies performed at [facility] on 02/18/2018, 09/24/2019 and 08/24/2020. This study has been interpreted with the assistance of computer-aided detection. MAMMOGRAM FINDINGS: There are scattered fibroglandular densities. Benign calcifications are noted bilaterally. US of regions of palpable concern demonstrate prominent ducts on US bilaterally. There are no suspicious masses, suspicious calcifications, or new areas of architectural distortion. IMPRESSION: THERE IS NO MAMMOGRAPHIC EVIDENCE OF MALIGNANCY. A ROUTINE FOLLOW-UP MAMMOGRAM IN 1 YEAR IS RECOMMENDED. THE RESULTS OF THIS EXAM WERE SENT TO THE PATIENT. ACR BI-RADS Category 2 - Benign finding MAMMOGRAPHY NOTE: 1. A negative mammogram report should not delay a biopsy if a dominant of clinically suspicious mass is present. 2. Approximately 10% to 15% of breast cancers are not detected by mammography. 3. Adenosis and dense breasts may obscure an underlying neoplasm. Reported by: YANI HLODER MD Electonically Signed: [id number]
--- NOTE | 2020-08-24 11:04 | ULT ---
LIMITED RIGHT BREAST ULTRASOUND LIMITED LEFT BREAST ULTRASOUND: Date: 08/24/2020 HISTORY: 79-year-old female with palpable abnormality and pain at the 7 o'clock position of the right breast a nd 5 o'clock position of the left breast. FINDINGS: Sonographic evaluation of the region of palpable concern/pain involving the 7 o'clock position of the right breast and 5 o'clock position of the left breast demonstrate prominent ducts without mass. IMPRESSION: BI-RADS Category 2 - Benign findings. Return to annual mammographic screening. POS: OFF
== END 2020-08-24 08:56 | disposition home or self-care (01) ==
LOC: BICMAMMO 08:55
PROVIDERS: ATTEND Internal Medicine
DX: N63.10 Unspecified lump in the right breast, unspecified quadrant (principal); N63.20 Unspecified lump in the left breast, unspecified quadrant; N64.4 Mastodynia
CPT/HCPCS: 76642 ×2; 77066; G0279

== ENCOUNTER 2020-08-29 08:51 | Outpatient (CLI) | payer MEDICARE ==
--- NOTE | 2020-08-29 09:25 | ULT ---
US Renal Bilateral STANDARD: 08/29/2020 8:58 AM CLINICAL HISTORY: Chronic kidney disease. STUDY: Renal ultrasound COMPARISON: None. FINDINGS: Right kidney: Echogenicity: Normal. Masses/cysts: None. Hydronephrosis: None. Calcifications: None. Length: 10.2 cm Left kidney: Echogenicity: Normal. Masses/cysts: None. Hydronephrosis: None. Calcifications: None. Length: 11.1 cm Limited visualization of the urinary bladder is unremarkable. IMPRESSION: Unremarkable renal ultrasound
== END 2020-08-29 08:52 | disposition home or self-care (01) ==
LOC: BICULT 08:51
PROVIDERS: ATTEND Internal Medicine
DX: N18.31 Chronic kidney disease, stage 3a (principal)
CPT/HCPCS: 76770

== ENCOUNTER 2020-10-20 09:20 | Outpatient (CLI) | payer MEDICARE | END 2020-10-20 09:21 | disposition home or self-care (01) | LOC: BICCT 09:20 | PROVIDERS: ATTEND Internal Medicine | DX: R91.1 Solitary pulmonary nodule (principal); K57.30 Diverticulosis of large intestine without perforation or abscess without bleeding; I70.0 Atherosclerosis of aorta; K76.89 Other specified diseases of liver; J92.9 Pleural plaque without asbestos; J98.4 Other disorders of lung; Z90.49 Acquired absence of other specified parts of digestive tract | CPT/HCPCS: 71250 ==

== ENCOUNTER 2020-12-01 07:17 | Outpatient (CLI) | payer MEDICARE | END 2020-12-01 07:18 | disposition home or self-care (01) | LOC: BICMRI 07:17 | PROVIDERS: ATTEND Internal Medicine | DX: M51.36 Other intervertebral disc degeneration, lumbar region (principal); M48.061 Spinal stenosis, lumbar region without neurogenic claudication; M47.816 Spondylosis without myelopathy or radiculopathy, lumbar region; R60.0 Localized edema; Z98.1 Arthrodesis status | CPT/HCPCS: 72148 ==

== ENCOUNTER 2021-06-29 12:27 | Outpatient (CLI) | payer MEDICARE | END 2021-06-29 12:28 | disposition home or self-care (01) | LOC: BICRAD 12:27 | PROVIDERS: ATTEND Internal Medicine | DX: R05.9 Cough, unspecified (principal); R91.8 Other nonspecific abnormal finding of lung field | CPT/HCPCS: 71046 ==

== ENCOUNTER 2021-09-20 14:09 | Outpatient (CLI) | payer MEDICARE | END 2021-09-20 14:10 | disposition home or self-care (01) | LOC: BICRAD 14:09 | PROVIDERS: ATTEND Internal Medicine | DX: R05.9 Cough, unspecified (principal) | CPT/HCPCS: 71046 ==

== ENCOUNTER 2022-02-05 09:35 | Outpatient (CLI) | payer MEDICARE | END 2022-02-05 09:36 | disposition home or self-care (01) | LOC: BICRAD 09:35 | PROVIDERS: ATTEND Internal Medicine | DX: M25.511 Pain in right shoulder (principal); R11.0 Nausea; E03.9 Hypothyroidism, unspecified; R73.03 Prediabetes | CPT/HCPCS: 80053; 83036; 83690; 84439; 84443; 85025 ==

== ENCOUNTER 2022-03-05 08:15 | Outpatient (CLI) | payer MEDICARE | END 2022-03-05 08:16 | disposition home or self-care (01) | LOC: MRI 08:15 | PROVIDERS: ATTEND Orthopaedic Surgery | DX: M47.22 Other spondylosis with radiculopathy, cervical region (principal); M48.02 Spinal stenosis, cervical region | CPT/HCPCS: 72141 ==

== ENCOUNTER 2022-03-06 10:31 | Outpatient (CLI) | payer MEDICARE | END 2022-03-06 10:32 | disposition home or self-care (01) | LOC: BICULT 10:31 | PROVIDERS: ATTEND Internal Medicine | DX: E04.1 Nontoxic single thyroid nodule (principal) | CPT/HCPCS: 76536 ==

== ENCOUNTER 2023-02-26 14:41 | Outpatient (CLI) | payer MEDICARE | END 2023-02-26 14:42 | disposition home or self-care (01) | LOC: BICCT 14:41 | PROVIDERS: ATTEND Internal Medicine | DX: Z12.2 Encounter for screening for malignant neoplasm of respiratory organs (principal); F17.210 Nicotine dependence, cigarettes, uncomplicated | CPT/HCPCS: 71271 ==

== ENCOUNTER 2023-09-26 10:25 | Outpatient (CLI) | payer MEDICARE | END 2023-09-26 10:26 | disposition home or self-care (01) | LOC: BICMAMMO 10:25 | PROVIDERS: ATTEND Internal Medicine | DX: Z12.31 Encounter for screening mammogram for malignant neoplasm of breast (principal); Z80.3 Family history of malignant neoplasm of breast; Z91.89 Other specified personal risk factors, not elsewhere classified | CPT/HCPCS: 77063; 77067 ==

== ENCOUNTER 2024-10-02 10:32 | Outpatient (CLI) | payer MEDICARE | END 2024-10-02 10:33 | disposition home or self-care (01) | LOC: BICMAMMO 10:32 | PROVIDERS: ATTEND Internal Medicine | DX: Z12.31 Encounter for screening mammogram for malignant neoplasm of breast (principal); Z80.3 Family history of malignant neoplasm of breast; Z91.89 Other specified personal risk factors, not elsewhere classified | CPT/HCPCS: 77063; 77067 ==